=== PATIENT | male | born 1935 | race Caucasian/White ===

== ENCOUNTER 2017-07-11 05:34 | Observation (INO) | payer OTHER, BC ==
[~2017-07-11] VITALS: Ht 170.2 cm; Wt 82.2 kg
[2017-07-11 06:48] LABS: HEMATOCRIT 39.5 % (38.0-50.0); HEMOGLOBIN 13.3 G/DL (12.5-16.6); MCH 30.6 PG (29.0-34.0); MCHC 33.7 G/DL (30.0-36.0); MCV 90.8 FL (86-99); PLATELET COUNT 196 K/uL (156-360); RBC DIS.WIDTH-CV 12.1 % (11.8-14.6); RBC DIS.WIDTH-SD 40.6 % (39-53); RED BLOOD COUNT 4.35 M/uL (4.00-5.50); WHITE BLOOD COUNT 5.6 K/uL (4.1-10.2)
[2017-07-11 07:21] LABS: CHLORIDE 102 MEQ/L (99-109); POTASSIUM 4.9 MEQ/L (3.7-5.4); SODIUM 139 MEQ/L (136-147)
[2017-07-11 07:26] LABS: CREATININE 0.9 MG/DL (0.6-1.3); GFR ESTIMATE (CALCULATED) > 59 mL/min/ (58.99-99999); GLUCOSE 146 mg/dL (70-99); UREA NITROGEN (BUN) 17 mg/dL (9-23)
[2017-07-11] MEDS ORDERED: JANUVIA100 MG PO (10:52)
[2017-07-11] MEDS ORDERED: BASAGLAR K100 UNIT/1 SC (10:52)
[2017-07-11] MEDS ORDERED: FUROSEMIDE20 MG PO (10:53)
[2017-07-11] MEDS ORDERED: HUMALOG100 UNIT/1 SC (10:53)
[2017-07-11] MEDS ORDERED: PRAVASTATIN SOD80 MG PO (10:53)
[2017-07-11] MEDS ORDERED: QUINAPRIL HCL20 MG PO (10:53)
[2017-07-11] MEDS ORDERED: METFORMIN HCL1000 MG PO (10:53)
[2017-07-11] MEDS ORDERED: MAG-OXIDE400 MG PO (10:54)
[2017-07-11] MEDS ORDERED: ASPIR-LOW81 MG PO (10:54)
[2017-07-11] MEDS ORDERED: CYANOCOBALAM1000 MCG PO (10:55)
[2017-07-11] MEDS ORDERED: CO Q-10100 MG PO (10:55)
[2017-07-11] MEDS ORDERED: IRON325 M1 PO (10:55)
[2017-07-11] MEDS ORDERED: MULTI VITAMIN1 EACH PO (10:55)
[2017-07-11 19:45] VITALS: BP 136/75
[2017-07-11 20:00] LABS: HEMATOCRIT 37.5 % (38.0-50.0); HEMOGLOBIN 12.5 G/DL (12.5-16.6); MCV 90.6 FL (86-99)
[2017-07-11 23:52] VITALS: BP 177/81
[2017-07-12] VITALS: BP 119/58
[2017-07-12 03:35] VITALS: BP 164/77
[2017-07-12 07:00] LABS: HEMATOCRIT 36.9 % (38.0-50.0); HEMOGLOBIN 12.2 G/DL (12.5-16.6); INTER. NORMALIZED RATIO 1.1; MCH 30.4 PG (29.0-34.0); MCHC 33.1 G/DL (30.0-36.0); PLATELET COUNT 155 K/uL (156-360); RBC DIS.WIDTH-CV 12.3 % (11.8-14.6); RBC DIS.WIDTH-SD 41.3 % (39-53); RED BLOOD COUNT 4.01 M/uL (4.00-5.50); WHITE BLOOD COUNT 5.1 K/uL (4.1-10.2)
[2017-07-12 07:27] LABS: CHLORIDE 105 MEQ/L (99-109); CREATININE 0.9 MG/DL (0.6-1.3); GFR ESTIMATE (CALCULATED) > 59 mL/min/ (58.99-99999); GLUCOSE 115 mg/dL (70-99); POTASSIUM 4.7 MEQ/L (3.7-5.4); SODIUM 141 MEQ/L (136-147); UREA NITROGEN (BUN) 12 mg/dL (9-23)
[2017-07-12 07:53] VITALS: BP 149/70
[2017-07-12 16:16] VITALS: BP 155/68
[2017-07-12 20:00] VITALS: BP 138/68
[2017-07-12 20:03] LABS: HEMATOCRIT 33.8 % (38.0-50.0); HEMOGLOBIN 11.1 G/DL (12.5-16.6); MCV 91.6 FL (86-99)
[2017-07-13 03:54] VITALS: BP 144/67
[2017-07-13 09:27] LABS: HEMATOCRIT 34.4 % (38.0-50.0); HEMOGLOBIN 11.1 G/DL (12.5-16.6)
[2017-07-13 09:56] VITALS: BP 147/72
[2017-07-13 11:44] VITALS: BP 142/67
[2017-07-13 14:50] VITALS: BP 134/64
== END 2017-07-13 17:27 | disposition home or self-care (01) ==
LOC: EME 05:34 → EDOF 07:48 → 5WEST 07:48 → EDOF 07:48 → ENRESERV 08:04 → 5WEST 14:37
PROVIDERS: Internal Medicine; Internal Medicine Gastroenterology
PROC: 0DBP8ZX Excision of Rectum, Via Natural or Artificial Opening Endoscopic, Diagnostic (ICD-10-PCS; principal; 2017-07-12)
DX: C20 Malignant neoplasm of rectum (principal); D64.9 Anemia, unspecified; K57.30 Diverticulosis of large intestine without perforation or abscess without bleeding; K64.8 Other hemorrhoids; Z85.46 Personal history of malignant neoplasm of prostate; I10 Essential (primary) hypertension; E78.5 Hyperlipidemia, unspecified; E11.9 Type 2 diabetes mellitus without complications; Z79.4 Long term (current) use of insulin; Z79.82 Long term (current) use of aspirin; Z86.010 Personal history of colon polyps
CPT/HCPCS: 71260; 74176; 80048; 82378; 82948; 85014; 85018; 85027; 85610; 86850; 86900; 86901; 88305; 99281; 99285; G0378; J1815; J7030

== ENCOUNTER 2017-08-08 23:07 | Inpatient (IN) | payer OTHER, BC ==
[~2017-08-08] VITALS: Ht 170.2 cm; Wt 83.2 kg
[~2017-08-08 23:07] MED LIST: ACCUPRIL20 MG PO; ASPIR-LOW81 MG PO; BASAGLAR K100 UNIT/1 SC; CO Q-10100 MG PO; CYANOCOBALAM1000 MCG PO; FUROSEMIDE20 MG PO; GLUCOPHAGE1000 MG PO; HUMALOG JU100 UNIT/1 SC; HUMALOG100 UNIT/1 SC; IRON325 M1 PO; JANUVIA100 MG PO; LASIX20 MG PO; MAGNESIUM250 M1 PO; METFORMIN HCL1000 MG PO; MULTI VITAMIN1 EACH PO; PRAVACHOL80 MG PO; PRAVASTATIN SOD80 MG PO; QUINAPRIL HCL20 MG PO
[2017-08-09] VITALS (7 sets, daily range): BP systolic 110–171; BP diastolic 65–78
[2017-08-09 17:48] LABS: HEMATOCRIT 35.6 % (38.0-50.0); HEMOGLOBIN 11.6 G/DL (12.5-16.6); MCHC 32.6 G/DL (30.0-36.0); PLATELET COUNT 228 K/uL (156-360); RBC DIS.WIDTH-CV 12.6 % (11.8-14.6); RBC DIS.WIDTH-SD 42.2 % (39-53); RED BLOOD COUNT 3.87 M/uL (4.00-5.50); WHITE BLOOD COUNT 16.7 K/uL (4.1-10.2)
[2017-08-09 18:24] LABS: CHLORIDE 103 MEQ/L (99-109); GFR ESTIMATE (CALCULATED) > 59 mL/min/ (58.99-99999); POTASSIUM 4.8 MEQ/L (3.7-5.4); SODIUM 133 MEQ/L (136-147); UREA NITROGEN (BUN) 19 mg/dL (9-23)
[2017-08-09 18:32] LABS: GLUCOSE 455 mg/dL (70-99)
[2017-08-10] VITALS (24 sets, daily range): BP systolic 0–139; BP diastolic 0–67
[2017-08-10 00:46] LABS: CHLORIDE 104 mEq/L (99-109); POTASSIUM 5.2 mEq/L (3.7-5.4); SODIUM 134 mEq/L (136-147)
[2017-08-10 00:48] LABS: GLUCOSE 301 mg/dL (70-99)
[2017-08-10 00:52] LABS: CREATININE 1.1 mg/dL (0.6-1.3); GFR ESTIMATE (CALCULATED) > 59 mL/min/ (58.99-99999); PHOSPHORUS 3.2 mg/dL (2.5-4.9)
[2017-08-10 00:53] LABS: UREA NITROGEN (BUN) 21 mg/dL (9-23)
[2017-08-10 01:52] LABS: HEMOGLOBIN 10.7 G/DL (12.5-16.6); MCH 30.7 PG (29.0-34.0); MCHC 33.4 G/DL (30.0-36.0); PLATELET COUNT 208 K/uL (156-360); RBC DIS.WIDTH-CV 12.9 % (11.8-14.6); RBC DIS.WIDTH-SD 43.4 % (39-53); RED BLOOD COUNT 3.48 M/uL (4.00-5.50); WHITE BLOOD COUNT 13.9 K/uL (4.1-10.2)
[2017-08-10 04:54] LABS: HEMATOCRIT 28.9 % (38.0-50.0); HEMOGLOBIN 9.8 G/DL (12.5-16.6); MCHC 33.9 G/DL (30.0-36.0); MCV 91.5 FL (86-99); PLATELET COUNT 188 K/uL (156-360); RBC DIS.WIDTH-CV 12.8 % (11.8-14.6); RBC DIS.WIDTH-SD 42.6 % (39-53); RED BLOOD COUNT 3.16 M/uL (4.00-5.50); WHITE BLOOD COUNT 11.7 K/uL (4.1-10.2)
[2017-08-10 05:11] LABS: CHLORIDE 104 mEq/L (99-109); POTASSIUM 5.6 mEq/L (3.7-5.4); SODIUM 134 mEq/L (136-147)
[2017-08-10 05:12] LABS: MAGNESIUM 2.1 mg/dL (1.3-2.7)
[2017-08-10 05:13] LABS: GLUCOSE 226 mg/dL (70-99)
[2017-08-10 05:17] LABS: CREATININE 1.2 mg/dL (0.6-1.3); GFR ESTIMATE (CALCULATED) > 59 mL/min/ (58.99-99999); PHOSPHORUS 3.3 mg/dL (2.5-4.9)
[2017-08-10 05:18] LABS: UREA NITROGEN (BUN) 22 mg/dL (9-23)
[2017-08-10 09:32] LABS: CHLORIDE 106 MEQ/L (99-109); CREATININE 1.3 MG/DL (0.6-1.3); GFR ESTIMATE (CALCULATED) 56 mL/min/ (58.99-99999); GLUCOSE 168 mg/dL (70-99); PHOSPHORUS 3.4 mg/dL (2.5-4.9); POTASSIUM 5.2 MEQ/L (3.7-5.4); SODIUM 138 MEQ/L (136-147); UREA NITROGEN (BUN) 26 mg/dL (9-23)
[2017-08-10 09:41] LABS: HEMOGLOBIN A1c (GLYCOHEMOGLOB) 6.9 % (Below 5.7)
[2017-08-10 13:33] LABS: CHLORIDE 107 MEQ/L (99-109); CREATININE 1.1 MG/DL (0.6-1.3); GFR ESTIMATE (CALCULATED) > 59 mL/min/ (58.99-99999); GLUCOSE 170 mg/dL (70-99); PHOSPHORUS 3.6 mg/dL (2.5-4.9); POTASSIUM 5.1 MEQ/L (3.7-5.4); SODIUM 138 MEQ/L (136-147); UREA NITROGEN (BUN) 26 mg/dL (9-23)
[2017-08-10 16:36] LABS: CHLORIDE 105 MEQ/L (99-109); POTASSIUM 5.3 MEQ/L (3.7-5.4); SODIUM 134 MEQ/L (136-147)
[2017-08-10 16:40] LABS: CREATININE 1.1 MG/DL (0.6-1.3); GFR ESTIMATE (CALCULATED) > 59 mL/min/ (58.99-99999); GLUCOSE 247 mg/dL (70-99); PHOSPHORUS 3.1 mg/dL (2.5-4.9); UREA NITROGEN (BUN) 27 mg/dL (9-23)
[2017-08-10 20:12] LABS: CHLORIDE 104 MEQ/L (99-109); POTASSIUM 5.5 MEQ/L (3.7-5.4); SODIUM 133 MEQ/L (136-147)
[2017-08-10 20:20] LABS: CREATININE 1.1 MG/DL (0.6-1.3); GFR ESTIMATE (CALCULATED) > 59 mL/min/ (58.99-99999); GLUCOSE 268 mg/dL (70-99); UREA NITROGEN (BUN) 28 mg/dL (9-23)
[2017-08-11] VITALS (30 sets, daily range): BP systolic 113–161; BP diastolic 47–72
[2017-08-11 01:38] LABS: CHLORIDE 106 mEq/L (99-109); POTASSIUM 4.9 mEq/L (3.7-5.4); SODIUM 135 mEq/L (136-147)
[2017-08-11 01:39] LABS: GLUCOSE 245 mg/dL (70-99)
[2017-08-11 01:43] LABS: CREATININE 1.1 mg/dL (0.6-1.3); GFR ESTIMATE (CALCULATED) > 59 mL/min/ (58.99-99999)
[2017-08-11 01:44] LABS: UREA NITROGEN (BUN) 27 mg/dL (9-23)
[2017-08-11 05:28] LABS: HEMATOCRIT 22.4 % (38.0-50.0); MCH 30.1 PG (29.0-34.0); MCHC 32.1 G/DL (30.0-36.0); MCV 93.7 FL (86-99); PLATELET COUNT 151 K/uL (156-360); RBC DIS.WIDTH-CV 13.2 % (11.8-14.6); RBC DIS.WIDTH-SD 45.2 % (39-53); WHITE BLOOD COUNT 9.7 K/uL (4.1-10.2)
[2017-08-11 05:46] LABS: CHLORIDE 104 MEQ/L (99-109); GFR ESTIMATE (CALCULATED) > 59 mL/min/ (58.99-99999); GLUCOSE 245 mg/dL (70-99); MAGNESIUM 2.1 mg/dl (1.3-2.7); PHOSPHORUS 2.7 mg/dL (2.5-4.9); POTASSIUM 4.8 MEQ/L (3.7-5.4); SODIUM 134 MEQ/L (136-147); UREA NITROGEN (BUN) 26 mg/dL (9-23)
[2017-08-11 05:59] LABS: HEMOGLOBIN 7.2 G/DL (12.5-16.6); RED BLOOD COUNT 2.39 M/uL (4.00-5.50)
[2017-08-11 18:46] LABS: HEMATOCRIT 30.1 % (38.0-50.0); MCV 92.6 FL (86-99)
[2017-08-12] VITALS (24 sets, daily range): BP systolic 113–167; BP diastolic 48–99
[2017-08-12 01:20] LABS: CHLORIDE 106 mEq/L (99-109); POTASSIUM 4.2 mEq/L (3.7-5.4); SODIUM 138 mEq/L (136-147)
[2017-08-12 01:22] LABS: GLUCOSE 212 mg/dL (70-99)
[2017-08-12 01:26] LABS: CREATININE 0.9 mg/dL (0.6-1.3); GFR ESTIMATE (CALCULATED) > 59 mL/min/ (58.99-99999)
[2017-08-12 01:27] LABS: UREA NITROGEN (BUN) 23 mg/dL (9-23)
[2017-08-12 05:36] LABS: HEMATOCRIT 26.5 % (38.0-50.0); HEMOGLOBIN 8.7 G/DL (12.5-16.6); MCH 29.7 PG (29.0-34.0); MCHC 32.8 G/DL (30.0-36.0); MCV 90.4 FL (86-99); PLATELET COUNT 123 K/uL (156-360); RBC DIS.WIDTH-CV 13.6 % (11.8-14.6); RBC DIS.WIDTH-SD 45.2 % (39-53); WHITE BLOOD COUNT 4.5 K/uL (4.1-10.2)
[2017-08-12 05:37] LABS: RED BLOOD COUNT 2.93 M/uL (4.00-5.50)
[2017-08-12 05:50] LABS: CHLORIDE 106 MEQ/L (99-109); CREATININE 0.8 MG/DL (0.6-1.3); GFR ESTIMATE (CALCULATED) > 59 mL/min/ (58.99-99999); GLUCOSE 191 mg/dL (70-99); MAGNESIUM 2.1 mg/dl (1.3-2.7); PHOSPHORUS 2.5 mg/dL (2.5-4.9); POTASSIUM 3.9 MEQ/L (3.7-5.4); SODIUM 136 MEQ/L (136-147); UREA NITROGEN (BUN) 24 mg/dL (9-23)
[2017-08-13] VITALS (16 sets, daily range): BP systolic 116–177; BP diastolic 51–87
[2017-08-13 05:58] LABS: HEMATOCRIT 24.6 % (38.0-50.0); HEMOGLOBIN 8.2 G/DL (12.5-16.6); MCHC 33.3 G/DL (30.0-36.0); MCV 90.1 FL (86-99); PLATELET COUNT 137 K/uL (156-360); RBC DIS.WIDTH-CV 13.2 % (11.8-14.6); RBC DIS.WIDTH-SD 43.1 % (39-53); RED BLOOD COUNT 2.73 M/uL (4.00-5.50); WHITE BLOOD COUNT 3.5 K/uL (4.1-10.2)
[2017-08-13 06:26] LABS: CHLORIDE 104 MEQ/L (99-109); CREATININE 0.7 MG/DL (0.6-1.3); GFR ESTIMATE (CALCULATED) > 59 mL/min/ (58.99-99999); GLUCOSE 138 mg/dL (70-99); POTASSIUM 3.7 MEQ/L (3.7-5.4); SODIUM 138 MEQ/L (136-147); UREA NITROGEN (BUN) 15 mg/dL (9-23)
[2017-08-14] VITALS (16 sets, daily range): BP systolic 111–167; BP diastolic 56–81
[2017-08-14 04:48] LABS: HEMATOCRIT 25.1 % (38.0-50.0); HEMOGLOBIN 8.6 G/DL (12.5-16.6); MCH 30.4 PG (29.0-34.0); MCHC 34.3 G/DL (30.0-36.0); MCV 88.7 FL (86-99); PLATELET COUNT 158 K/uL (156-360); RBC DIS.WIDTH-CV 12.7 % (11.8-14.6); RBC DIS.WIDTH-SD 41.1 % (39-53); RED BLOOD COUNT 2.83 M/uL (4.00-5.50); WHITE BLOOD COUNT 4.5 K/uL (4.1-10.2)
[2017-08-14 05:13] LABS: CHLORIDE 104 MEQ/L (99-109); CREATININE 0.7 MG/DL (0.6-1.3); GFR ESTIMATE (CALCULATED) > 59 mL/min/ (58.99-99999); GLUCOSE 143 mg/dL (70-99); POTASSIUM 3.7 MEQ/L (3.7-5.4); SODIUM 136 MEQ/L (136-147); UREA NITROGEN (BUN) 13 mg/dL (9-23)
[2017-08-15 03:16] VITALS: BP 126/61
[2017-08-15 06:11] LABS: HEMATOCRIT 30.9 % (38.0-50.0); HEMOGLOBIN 10.4 G/DL (12.5-16.6); MCH 29.7 PG (29.0-34.0); MCHC 33.7 G/DL (30.0-36.0); MCV 88.3 FL (86-99); PLATELET COUNT 157 K/uL (156-360); RBC DIS.WIDTH-CV 13.2 % (11.8-14.6); RBC DIS.WIDTH-SD 42.5 % (39-53); WHITE BLOOD COUNT 5.7 K/uL (4.1-10.2)
[2017-08-15 06:34] LABS: CHLORIDE 104 MEQ/L (99-109); CREATININE 0.7 MG/DL (0.6-1.3); GFR ESTIMATE (CALCULATED) > 59 mL/min/ (58.99-99999); GLUCOSE 200 mg/dL (70-99); SODIUM 132 MEQ/L (136-147); UREA NITROGEN (BUN) 14 mg/dL (9-23)
[2017-08-15 08:03] VITALS: BP 138/72
[2017-08-15 11:41] VITALS: BP 154/76
[2017-08-15 15:15] VITALS: BP 147/69
[2017-08-16] VITALS: BP 133/65
[2017-08-16 06:30] LABS: HEMATOCRIT 31.7 % (38.0-50.0); HEMOGLOBIN 10.9 G/DL (12.5-16.6); MCH 30.5 PG (29.0-34.0); MCHC 34.4 G/DL (30.0-36.0); MCV 88.8 FL (86-99); PLATELET COUNT 191 K/uL (156-360); RBC DIS.WIDTH-CV 13.1 % (11.8-14.6); RBC DIS.WIDTH-SD 42.7 % (39-53); RED BLOOD COUNT 3.57 M/uL (4.00-5.50); WHITE BLOOD COUNT 6.1 K/uL (4.1-10.2)
[2017-08-16 06:49] LABS: CHLORIDE 103 MEQ/L (99-109); CREATININE 0.7 MG/DL (0.6-1.3); GFR ESTIMATE (CALCULATED) > 59 mL/min/ (58.99-99999); GLUCOSE 129 mg/dL (70-99); POTASSIUM 3.8 MEQ/L (3.7-5.4); SODIUM 135 MEQ/L (136-147); UREA NITROGEN (BUN) 10 mg/dL (9-23)
[2017-08-16 08:11] VITALS: BP 172/76
[2017-08-16 16:27] VITALS: BP 131/73
[2017-08-16 23:47] VITALS: BP 140/66
[2017-08-17 06:18] LABS: HEMATOCRIT 31.3 % (38.0-50.0); HEMOGLOBIN 10.7 G/DL (12.5-16.6); MCH 30.5 PG (29.0-34.0); MCHC 34.2 G/DL (30.0-36.0); MCV 89.2 FL (86-99); PLATELET COUNT 215 K/uL (156-360); RBC DIS.WIDTH-CV 13.1 % (11.8-14.6); RBC DIS.WIDTH-SD 42.5 % (39-53); RED BLOOD COUNT 3.51 M/uL (4.00-5.50); WHITE BLOOD COUNT 5.8 K/uL (4.1-10.2)
[2017-08-17 06:42] LABS: CHLORIDE 103 MEQ/L (99-109); CREATININE 0.6 MG/DL (0.6-1.3); GFR ESTIMATE (CALCULATED) > 59 mL/min/ (58.99-99999); GLUCOSE 155 mg/dL (70-99); POTASSIUM 3.9 MEQ/L (3.7-5.4); SODIUM 136 MEQ/L (136-147); UREA NITROGEN (BUN) 10 mg/dL (9-23)
[2017-08-17 07:25] VITALS: BP 146/71
[2017-08-17 16:26] VITALS: BP 128/67
[2017-08-18 00:15] VITALS: BP 131/60
[2017-08-18 07:25] VITALS: BP 156/70
== END 2017-08-18 14:30 | DRG 331 ==
LOC: ENRESERV 23:07 → 4WEST 08-09 07:07 → 2SOUTH 08-09 07:07 → ENRESERV 08-09 16:21 → 2SOUTH 08-09 18:02 → ENRESERV 08-09 18:36 → 4WEST 08-09 19:03 → ENRESERV 08-13 11:31 → 2EAST 08-13 13:48
PROVIDERS: Physician Assistant; Surgery
DX: C20 Malignant neoplasm of rectum (principal); E11.65 Type 2 diabetes mellitus with hyperglycemia; I95.9 Hypotension, unspecified; R41.0 Disorientation, unspecified; R06.6 Hiccough; I10 Essential (primary) hypertension; E78.5 Hyperlipidemia, unspecified; D63.8 Anemia in other chronic diseases classified elsewhere; E66.3 Overweight; Z68.28 Body mass index [BMI] 28.0-28.9, adult; K57.30 Diverticulosis of large intestine without perforation or abscess without bleeding; H91.90 Unspecified hearing loss, unspecified ear; Z85.46 Personal history of malignant neoplasm of prostate; Z92.3 Personal history of irradiation; Z79.4 Long term (current) use of insulin; Z79.82 Long term (current) use of aspirin
CPT/HCPCS: 36415; 71045; 74177; 80048; 80048 91; 80053; 82728; 82948; 83036; 83735; 84100; 85014; 85018; 85025; 85027; 86850; 86900; 86901; 86920; 87641; 88302; 88305; 88309; 93005; 97530 GO; 97530 GP; C1751; J0131; J1170; J1335; J1815; J1885; J1940; J2001; J2270; J2405; J2710; J2795; J3010; J3230; J3475; J7030; J7050; J7120; P9016; S0020

== ENCOUNTER 2017-08-18 10:59 | Inpatient (IN) | payer OTHER, BC ==
[~2017-08-18] VITALS: Ht 170.2 cm; Wt 81.3 kg
[2017-08-18 14:59] VITALS: BP 160/73
[2017-08-18 23:46] VITALS: BP 148/65
[2017-08-19 05:40] VITALS: BP 154/69
[2017-08-19 07:06] LABS: HEMATOCRIT 33.7 % (38.0-50.0); HEMOGLOBIN 11.1 G/DL (12.5-16.6); MCH 29.4 PG (29.0-34.0); MCHC 32.9 G/DL (30.0-36.0); MCV 89.4 FL (86-99); PLATELET COUNT 271 K/uL (156-360); RBC DIS.WIDTH-CV 12.9 % (11.8-14.6); RED BLOOD COUNT 3.77 M/uL (4.00-5.50); WHITE BLOOD COUNT 5.3 K/uL (4.1-10.2)
[2017-08-19 07:39] LABS: ALBUMIN 2.5 G/DL (3.2-4.8); ALKALINE PHOSPHATASE 42 IU/L (3-129); ALT (GPT) 8 IU/L (3-49); AST (GOT) 9 IU/L (2-34); CHLORIDE 104 MEQ/L (99-109); CREATININE 0.6 MG/DL (0.6-1.3); GFR ESTIMATE (CALCULATED) > 59 mL/min/ (58.99-99999); POTASSIUM 3.9 MEQ/L (3.7-5.4); SODIUM 140 MEQ/L (136-147); TOTAL BILIRUBIN 0.5 MG/DL (0.0-1.0); TOTAL PROTEIN 4.7 G/DL (6.4-8.3); UREA NITROGEN (BUN) 11 mg/dL (9-23)
[2017-08-19 07:47] LABS: GLUCOSE 63 mg/dL (70-99)
[2017-08-19 15:18] VITALS: BP 149/67
[2017-08-20 00:30] LABS: APPEARANCE CLEAR ((CLEAR)); BILIRUBIN NEGATIVE; BLOOD MODERATE; COLOR YELLOW ((YELLOW)); GLUCOSE (STRIP) >=500; KETONES NEGATIVE; LEUKOCYTES NEGATIVE; NITRITE NEGATIVE; PROTEIN (STRIP) NEGATIVE; SPECIFIC GRAVITY 1.021 (1.000-1.030); UROBILINOGEN 0.2 MG/DL (0.2-1.0)
[2017-08-20 00:32] LABS: BACTERIA RARE /HPF; EPITHELIAL CELLS NONE SEEN /HPF; MUCUS TRACE /LPF; RED BLOOD CELLS TNTC /HPF (0-5); WHITE BLOOD CELLS 0-5 /HPF (0-5)
[2017-08-20 05:50] VITALS: BP 146/65
[2017-08-20 15:09] VITALS: BP 153/68
[2017-08-20 21:20] VITALS: BP 140/66
[2017-08-21 05:03] VITALS: BP 147/70
[2017-08-21 15:43] VITALS: BP 137/65
[2017-08-22 06:24] VITALS: BP 131/65
[2017-08-22 15:39] VITALS: BP 138/65
[2017-08-23 05:49] VITALS: BP 131/64
[2017-08-23 15:11] VITALS: BP 138/63
[2017-08-24 15:10] VITALS: BP 142/67
[2017-08-25 06:14] VITALS: BP 146/70
[2017-08-25 15:09] VITALS: BP 147/70
[2017-08-26 05:02] VITALS: BP 126/61
[2017-08-26 07:59] LABS: HEMATOCRIT 39.5 % (38.0-50.0); HEMOGLOBIN 12.6 G/DL (12.5-16.6); MCH 29.2 PG (29.0-34.0); MCHC 31.9 G/DL (30.0-36.0); MCV 91.4 FL (86-99); RBC DIS.WIDTH-CV 12.7 % (11.8-14.6); RBC DIS.WIDTH-SD 42.5 % (39-53); RED BLOOD COUNT 4.32 M/uL (4.00-5.50); WHITE BLOOD COUNT 5.8 K/uL (4.1-10.2)
[2017-08-26 08:02] LABS: PLATELET COUNT 426 K/uL (156-360)
[2017-08-26 08:16] LABS: ALBUMIN 3.6 G/DL (3.2-4.8); ALKALINE PHOSPHATASE 63 IU/L (3-129); ALT (GPT) 15 IU/L (3-49); AST (GOT) 18 IU/L (2-34); CHLORIDE 96 MEQ/L (99-109); CREATININE 0.8 MG/DL (0.6-1.3); GFR ESTIMATE (CALCULATED) > 59 mL/min/ (58.99-99999); GLUCOSE 96 mg/dL (70-99); POTASSIUM 4.4 MEQ/L (3.7-5.4); SODIUM 135 MEQ/L (136-147); TOTAL BILIRUBIN 0.5 MG/DL (0.0-1.0); TOTAL PROTEIN 7.2 G/DL (6.4-8.3); UREA NITROGEN (BUN) 13 mg/dL (9-23)
[2017-08-26] MEDS ORDERED: TRAMADOL HCL50 MG PO (12:59)
[2017-08-26] MEDS ORDERED: PRAVACHOL80 MG PO (12:59)
[2017-08-26] MEDS ORDERED: CYANOCOBALAM1000 MCG PO (12:59)
[2017-08-26] MEDS ORDERED: MAG-OXIDE400 MG PO (12:59)
[2017-08-26] MEDS ORDERED: JANUVIA100 MG PO (12:59)
[2017-08-26] MEDS ORDERED: BASAGLAR K100 UNIT/1 SC (12:59)
[2017-08-26] MEDS ORDERED: ACCUPRIL20 MG PO (12:59)
[2017-08-26] MEDS ORDERED: GLUCOPHAGE1000 MG PO (12:59)
[2017-08-26] MEDS ORDERED: LASIX20 MG PO (12:59)
[2017-08-26] MEDS ORDERED: FERROUS SULFAT325 MG PO (12:59)
[2017-08-26 15:19] VITALS: BP 135/66
[2017-08-27 05:50] VITALS: BP 135/72
== END 2017-08-27 12:53 | disposition home health service (06) | DRG 945 ==
LOC: 3WEST 10:59 → ENPENDDIS 08-26 → 3WEST 08-27 12:53
PROVIDERS: Physical Medicine & Rehabilitation Pain Medicine; Surgery
PROC: F07M0ZZ Range of Motion and Joint Mobility Treatment of Musculoskeletal System - Whole Body (ICD-10-PCS; principal; 2017-08-18)
DX: R53.1 Weakness (principal); D62 Acute posthemorrhagic anemia; E78.5 Hyperlipidemia, unspecified; E11.9 Type 2 diabetes mellitus without complications; I10 Essential (primary) hypertension; E83.51 Hypocalcemia; C20 Malignant neoplasm of rectum; Z85.46 Personal history of malignant neoplasm of prostate; K64.9 Unspecified hemorrhoids; J98.11 Atelectasis; Z93.3 Colostomy status; J90 Pleural effusion, not elsewhere classified; H91.90 Unspecified hearing loss, unspecified ear; G47.00 Insomnia, unspecified
CPT/HCPCS: 80053; 81003; 82948; 85027; 87086; 97110 GO; 97530 GP; J1815

== ENCOUNTER → 2017-09-07 | Outpatient (CLI) | payer OTHER, BC ==
[~2017-09-07] MED LIST changes: +FERROUS SULFAT325 MG PO; +FLOMAX0.4 MG PO; +MAG-OXIDE400 MG PO; +TRAMADOL HCL50 MG PO
[2017-09-07 09:19] LABS: INTER. NORMALIZED RATIO 1.1
[2017-09-07 09:22] LABS: PTT 29.8 SEC (25-37)
[2017-09-07 09:30] LABS: BASOPHIL (%) 0.4 % (0-1); EOSINOPHIL COUNT 0.2 K/uL (0-0.3); HEMATOCRIT 38.1 % (38.0-50.0); HEMOGLOBIN 12.6 G/DL (12.5-16.6); IMMATURE GRANULOCYTE (%) 0.4 % (0.0-0.7); LYMPHOCYTE (%) 20.9 % (15-42); LYMPHOCYTE COUNT 1.1 K/uL (1.0-2.8); MCH 29.9 PG (29.0-34.0); MCHC 33.1 G/DL (30.0-36.0); MCV 90.3 FL (86-99); MONOCYTE (%) 9.7 % (3-12); MONOCYTE COUNT 0.5 K/uL (0-0.8); NEUTROPHIL (%) 64.6 % (45-76); NEUTROPHIL COUNT 3.5 K/uL (1.8-6.4); RBC DIS.WIDTH-CV 12.7 % (11.8-14.6); RBC DIS.WIDTH-SD 41.6 % (39-53); RED BLOOD COUNT 4.22 M/uL (4.00-5.50); WHITE BLOOD COUNT 5.5 K/uL (4.1-10.2)
[2017-09-07 09:41] LABS: PLAT.SUFFICIENCY ADEQUATE; PLATELET CLUMPS PRESENT - PLATELET COUNT APPEARS INCREASED; PLATELET COUNT UNABLE TO REPORT K/uL (156-360)
== END | disposition home or self-care (01) ==
LOC: OPR 08:32 → EDSTATUS 09:00
PROVIDERS: Surgery
DX: K91.870 Postprocedural hematoma of a digestive system organ or structure following a digestive system procedure (principal); Z79.82 Long term (current) use of aspirin; Z93.3 Colostomy status
CPT/HCPCS: 77012; 82948; 85025; 85610; 85730; 87070; 87075; 87205; J3010